=== PATIENT | male | born 1960 | race Caucasian/White ===

== ENCOUNTER 2022-04-23 08:19 | Emergency (ER) | payer OTHER ==
[2022-04-23 09:16] LABS: BASOPHIL 0.6 % (0-2); HCT 44.9 % (42.0-52.0); HGB 15.1 g/dl (13.2-18.0); LYMPHOCYTE 32.4 % (15-48); MCHC 33.6 g/dL (32.0-36.0); MCV 86.2 fL (78.0-100.0); MONOCYTE 13.5 % (0-12); MPV 9.9 fL (6.0-9.5); NEUTROPHIL 52.1 % (41-80); NRBC 0; PLT 214 K/uL (150-400); RBC 5.21 M/uL (4.70-6.00); RDW 14.1 % (11.5-14.0); WBC 6.7 K/uL (4.0-10.5)
[2022-04-23 09:30] LABS: ALBUMIN 3.7 g/dL (3.4-5.0); BILIRUBIN - TOTAL 0.4 mg/dL (0.2-1.0); BUN/CREAT RATIO (CALC) 19.4 RATIO; CREATININE 1.03 mg/dL (0.67-1.17); GLOBULIN (CALCULATION) 3.3 g/dL; POTASSIUM 3.6 mmol/L (3.5-5.1)
[2022-04-23 10:19] LABS: BILIRUBIN NEGATIVE (NEGATIVE); BLOOD NEGATIVE Ery/uL (NEGATIVE); CLARITY HAZY (CLEAR); COLOR YELLOW (YELLOW); GLUCOSE (U) NORMAL (NORMAL); LEUKOCYTES NEGATIVE Leu/uL (NEGATIVE); NITRITE NEGATIVE (NEGATIVE); PROTEIN NEGATIVE (NEGATIVE); UROBILINOGEN 0.2 mg/dL (0.2-1.0); pH 7.5 (5.0-9.0)
[2022-04-23] MEDS ORDERED: ANTIVERT25 MG PO (12:42)
[2022-04-23] MEDS ORDERED: ONDANSETRON ODT4 MG PO (12:42)
== END 2022-04-23 13:38 | disposition home or self-care (01) ==
LOC: FER 08:19
PROVIDERS: Emergency Medicine
DX: R55 Syncope and collapse (principal); R51.9 Headache, unspecified; I10 Essential (primary) hypertension; R11.2 Nausea with vomiting, unspecified; I25.2 Old myocardial infarction; Z79.82 Long term (current) use of aspirin; Z79.01 Long term (current) use of anticoagulants; Z79.899 Other long term (current) drug therapy
CPT/HCPCS: 36415; 70551; 71045; 80053; 81003; 84484; 85025; 93005; J0780; J2060; J2270; J2405; Q9967